=== PATIENT | male | born 1965 ===

== ENCOUNTER 2017-10-26 13:11 | Emergency (ER) | payer BC ==
[2017-10-26 14:18] VITALS: BP 131/78
--- NOTE | 2017-10-26 14:43 | UC ---
Truncal Trauma HPI - HPI Summary HPI Summary: 52 yo male with right lat chest injury that occurred at work on 10/24 slipped as he was getting off a dozer hit chest on hydraulic cylinder hx of right rib fxs no SOB pain level mild at baseline markedly worsens with bending/movement /sneeze - History Of Current Complaint Chief Complaint: UCChestPain Stated Complaint: RIGHT SIDE RIB PAIN Time Seen by Provider: 10/26/17 14:26 Hx Obtained From: Patient Onset/Duration: Gradual Onset Onset Of Pain: Immediate Severity Initially: Moderate Severity Currently: Mild Pain Intensity: 2 Pain Scale Used: 0-10 Numeric Mechanism Of Injury: Fall From A Standing Position Aggravating Factor(s): Movement, Deep Breathing, Cough Alleviating factor(s): Rest, OTC Medication Related History: Occupational Injury, Prior Rib Fracture - Allergies/Home Medications Allergies/Adverse Reactions: Allergies Allergy/AdvReac Type Severity Reaction Status Date / Time No Known Allergies Allergy Verified 10/26/17 14:06 Home Medications: Home Medications Enalapril TAB* [Vasotec TAB*] 2.5 mg PO DAILY 10/26/17 [History Confirmed ] Ibuprofen TAB* [Motrin TAB* 600 MG] 600 mg PO Q6H PRN 10/26/17 [History Confirmed 10/26/17] Pravastatin Sodium 40 mg PO QAM 10/26/17 [History Confirmed 10/26/17] PMH/Surg Hx/FS Hx/Imm Hx Previously Healthy: Yes - Surgical History Surgical History: Yes Surgery Procedure, Year, and Place: appy, left thumb - Family History Known Family History: Positive: Hypertension, Other - dad with prostate CA - Social History Alcohol Use: Weekly Alcohol Amount: 10 beers Substance Use Type: None Smoking Status (MU): Never Smoked Tobacco Review of Systems Constitutional: Negative Skin: Negative Eyes: Negative ENT: Negative Respiratory: Negative Cardiovascular: Chest Pain Gastrointestinal: Negative Genitourinary: Negative Motor: Negative Neurovascular: Negative Musculoskeletal: Negative Neurological: Negative Psychological: Negative Is Patient Immunocompromised?: No All Other Systems Reviewed And Are Negative: Yes Physical Exam Triage Information Reviewed: Yes Appearance: Well-Appearing, No Pain Distress, Well-Nourished Vital Signs: Initial Vital Signs Temp 99.4 F 10/26/17 14:10 Pulse 70 10/26/17 14:10 Resp 18 10/26/17 14:10 BP 131/78 10/26/17 14:10 Pulse Ox 99 10/26/17 14:10 Vital Signs Reviewed: Yes Eyes: Positive: Conjunctiva Clear ENT: Positive: Hearing grossly normal. Negative: Nasal drainage, TMs normal, Trismus, Muffled voice, Hoarse voice Neck: Positive: Supple, Nontender Respiratory: Positive: Lungs clear, Normal breath sounds, No respiratory distress, No accessory muscle use. Negative: Chest non-tender Cardiovascular: Positive: RRR, No Murmur Abdomen Description: Positive: Nontender, No Organomegaly Bowel Sounds: Positive: Present Musculoskeletal: Positive: ROM Intact, No Edema Neurological: Positive: Alert Psychological Exam: Normal Skin Exam: Normal Diagnostics - Laboratory Diagnostic Studies Completed/Ordered: Pox 99% RA comment : normal/not hypoxic - Radiology No standard instances Xray Interpretation: Positive (See Comments) - NONDISPLACED FRACTURE OF THE RIGHT LATERAL NINTH RIB Radiology Interpretation Completed By: Radiologist [place] Trauma Course/Dx - Differential Dx/Diagnosis Provider Diagnoses: fracture or ninth right rib Discharge - Sign-Out/Discharge Documenting (check all that apply): Discharge - Discharge Plan Condition: Stable Disposition: HOME Patient Education Materials: Rib Fracture (ED) Forms: *Work Release Referrals: Martin Schafer MD [Primary Care Provider] - - Billing Disposition and Condition Condition: STABLE Disposition: HOME
--- NOTE | 2017-10-26 15:07 | RAD ---
INDICATION: Right rib injury. COMPARISON: There are no prior studies available for comparison. TECHNIQUE: 5 views of the right ribs and dual-energy PA views of the chest were obtained. FINDINGS: There is a nondisplaced fracture of the right lateral ninth rib. No other fractures are seen. The heart is within normal limits in size. The lungs are clear. There is no evidence for pneumothorax or pleural effusion. IMPRESSION: NONDISPLACED FRACTURE OF THE RIGHT LATERAL NINTH RIB.
== END 2017-10-26 15:23 | disposition home or self-care (01) ==
LOC: UCCORT 13:11
DX: S22.31XA Fracture of one rib, right side, initial encounter for closed fracture (principal); W01.0XXA Fall on same level from slipping, tripping and stumbling without subsequent striking against object, initial encounter; Y92.9 Unspecified place or not applicable
CPT/HCPCS: 99201; G0463